=== PATIENT | female | born 1975 | race African-American/Black ===

== ENCOUNTER 2022-09-19 14:43 | Emergency (ER) | payer BC ==
[2022-09-19] MEDS ORDERED: Ketorolac Tromethamine 30 MG/ML VIAL ONE (15:24)
[2022-09-19] MEDS ORDERED: Ondansetron PF 4 MG/2 ML Vial ONE (15:24)
[2022-09-19 15:48] LABS: #Basophils 0.1 10x3/uL (0.0-0.2); #Eosinphils 0.2 10x3/uL (0.0-0.5); #Monocytes 0.6 10x3/uL (0.0-1.1); #Neutrophils 2.5 10x3/uL (1.5-8.4); %Basophils 0.9 % (0.0-2.0); %Eosinophils 3.6 % (0.0-6.0); %Lymphocytes 40.6 % (18.0-47.0); %Monocytes 9.9 % (0.0-10.0); %Neutrophils 44.8 % (40.0-75.0); Hemoglobin 13.8 g/dL (12.0-15.5); Mean Corpuscular HGB CONC 32.9 g/dL (32.0-36.0); Mean Corpuscular Hemoglobin 29.1 pg (27.0-33.0); Mean Corpuscular Volume 88.6 fl (81.6-98.3); Mean Platelet Volume 9.9 fl (7.4-10.4); Platelet Count 343 10x3/uL (150-450); Red Blood Cell (RBC) Count 4.74 10x6/uL (3.90-5.03); White Blood Cell (WBC) Count 5.6 10x3/uL (3.5-10.5)
[2022-09-19 15:51] LABS: Bilirubin Neg (Negative); Blood, Urine 250 (Negative); Clarity Clear (Clear); Glucose, Urine (Dipstick) Normal (Negative); Ketone, Urine Negative (Negative); Leukocyte 25 (Negative); Nitrite Negative (Negative); Protein, Urine (Dipstick) Negative (Neg-Trace); Specific Gravity, Urine 1.015 (1.005-1.030); Urobilinogen Normal mg/dL (Less than 2)
[2022-09-19 15:54] LABS: Pregnancy Test - Urine (BHCG) Negative (Negative); Pregu Control Background? CLEAR/WHITE (CLR/WHITE); Pregu Control Bar Appear? YES (CONTROL BAR); Specific Gravity 1.015 (1.002-1.036)
[2022-09-19 16:05] LABS: ALT (SGPT) 18 U/L (8-55); AST (SGOT) 18 U/L (5-34); Albumin 4.1 g/dL (3.5-5.0); Alkaline Phosphatase 50 U/L (40-110); Anion Gap 12 mmol/L (10-20); BUN (Urea Nitrogen) 12 mg/dL (7.0-18.7); Bilirubin, Total 0.2 mg/dL (0.2-1.2); Calc. Creatinine Clearance 0 mL/min (70-130); Calcium 9.7 mg/dL (7.8-10.44); Carbon Dioxide 27 mmol/L (22-29); Chloride 105 mmol/L (98-107); Estimated GFR 86; Globulin 2.7 g/dL (2.4-3.5); Glucose 110 mg/dL (70-105); Potassium 3.8 mmol/L (3.5-5.1); Protein, Total 6.8 g/dL (6.0-8.3); Sodium 140 mmol/L (136-145)
[2022-09-19 17:13] LABS: Bacteria/HPF Rare-Few HPF (None Seen); RBC/HPF Greater than 50 HPF (0-3); WBC/HPF 0-3 HPF (0-3)
== END 2022-09-19 17:23 | disposition home or self-care (01) ==
LOC: CSHERS 14:43
DX: R06.02 Shortness of breath (principal); D64.9 Anemia, unspecified
CPT/HCPCS: 36415; 51701; 70450; 71045; 80053; 81003; 81015; 81025; 83880; 84443; 84484; 85025; 85379; 93005; 96361; 96374; 96375; J1885; J2405

== ENCOUNTER 2023-08-10 08:11 | Outpatient (CLI) | payer BC | END 2023-08-10 08:12 | disposition home or self-care (01) | LOC: CSHULT 08:11 | PROVIDERS: ATTEND Obstetrics & Gynecology | DX: N63.20 Unspecified lump in the left breast, unspecified quadrant (principal) | CPT/HCPCS: G0279 ==